=== PATIENT | female | born 1985 | race Caucasian/White ===

== ENCOUNTER 2024-06-29 12:27 | Outpatient (CLI) | payer OTHER | END 2024-06-29 12:28 | disposition home or self-care (01) | LOC: CSHMAMMO 12:27 | PROVIDERS: ATTEND Nurse Practitioner Family | DX: Z12.31 Encounter for screening mammogram for malignant neoplasm of breast (principal); N64.89 Other specified disorders of breast; Z80.3 Family history of malignant neoplasm of breast | CPT/HCPCS: 77067 ==

== ENCOUNTER 2024-07-14 14:08 | Outpatient (CLI) | payer OTHER | END 2024-07-14 14:09 | disposition home or self-care (01) | LOC: CSHMAMMO 14:08 | PROVIDERS: ATTEND Nurse Practitioner Family | DX: N64.89 Other specified disorders of breast (principal) | CPT/HCPCS: G0279 ==